=== PATIENT | male | born 1985 | race Caucasian/White ===

== ENCOUNTER 2020-05-23 16:04 | Emergency (ER) | payer MEDICAID ==
[2020-05-23 16:15] VITALS: BP 153/98; PULSE 116
--- NOTE | 2020-05-23 16:42 | CR ---
EXAMINATION: Knee 3V Rt SEX: Male AGE: 34 years CLINICAL HISTORY: 34-year-old male painful right knee (no known trauma but felt a "pop" 13 days ago). Interpretation: 1. Small suprapatellar bursal effusion (suggest possible internal derangement). 2. Subtle reactive sclerosis patellofemoral surface of the patella. 3. Homogeneous normal bone mineral density for age and gender. Symmetric spacing of the knee joint. 4. No sign of pathologic skeletal lesion, right knee fracture, dislocation or radiopaque loose joint body. 5. No foreign bodies.
--- NOTE | 2020-05-23 16:50 | EDM.PDOC ---
Scribed by Ale Juan 05/23/20 [id number] for Marcellus Jones NP ED HPI GENERAL MEDICAL PROBLEM - General Chief Complaint: Lower Extremity Injury/Pain Stated Complaint: RT KNEE PAIN Time Seen by Provider: 05/23/20 16:13 Source of Information: Reports: Patient, RN, RN Notes Reviewed History Limitations: Reports: No Limitations - History of Present Illness INITIAL COMMENTS - FREE TEXT/NARRATIVE: A 34-year-old male who presents to the ER with right knee pain x13 days. Patient reports getting up from a sitting position to try to open the door and he heard a pop. He states he has been hoping it would resolve but the pain has been constant. He has been taking Ibuprofen and drinking to help with pain. No known injury or trauma to the knee. No previous knee injury. Onset: Gradual Duration: Getting Worse Location: Reports: Lower Extremity, Right Quality: Reports: Ache Severity: Mild Improves with: Reports: None Worsens with: Reports: None Associated Symptoms: Reports: No Other Symptoms Right Knee Pain Score (Numeric/FACES): 4 - Related Data Allergies Allergy/AdvReac Type Severity Reaction Status Date / Time No Known Allergies Allergy Verified 05/23/20 16:12 Home Meds: Home Meds Ibuprofen [Advil] 400 mg PO Q4HR PRN 07/26/15 [History] Past Medical History Other Cardiovascular History: no history but BP is elevated at this time. See triage info. Review of Systems - Review of Systems Review Of Systems: Comprehensive ROS is negative, except as noted in HPI. ED EXAM, GENERAL - Physical Exam Exam: See Below Exam Limited By: No Limitations General Appearance: Alert, WD/WN, Mild Distress Respiratory/Chest: No Respiratory Distress, Lungs Clear, Normal Breath Sounds, No Accessory Muscle Use, Chest Non-Tender Cardiovascular: Normal Peripheral Pulses, Regular Rate, Rhythm, No Edema, No Gallop, No JVD, No Murmur, No Rub Extremities: Limited Range of Motion (due to pain), Other (patient could not perform most of the exam due to pain. Right knee extension 4/5. Flexion 2/5. ) Neurological: Alert, Oriented Psychiatric: Anxious Skin Exam: Warm, Intact Course - Vital Signs Last Recorded V/S: Last Vital Signs Temp 97.4 F 05/23/20 16:12 Pulse 116 H 07/16/20 16:12 Resp 16 05/23/20 16:12 BP 153/98 H 05/23/20 16:12 Pulse Ox 98 05/23/20 16:12 - Radiology Interpretation Free Text/Narrative:: X-ray right knee:Negative for fractures. See rad report. - Re-Assessments/Exams Free Text/Narrative Re-Assessment/Exam: Reviewed x-ray findings with patient. Knee immobilizer applied. Encourage ice 20 minutes every hour while awake. Elevate knee when sitting and lying down. Ibuprofen PRN for discomfort. Follow up with PCP. Departure - Departure Time of Disposition: 16:46 Disposition: Home, Self-Care 01 Condition: Good Clinical Impression: Knee pain Qualifiers: Chronicity: acute Laterality: right Qualified Code(s): M25.561 - Pain in right knee Effusion of bursa of knee Qualifiers: Laterality: right Qualified Code(s): M25.461 - Effusion, right knee - Discharge Information *PRESCRIPTION DRUG MONITORING PROGRAM REVIEWED*: Not Applicable *COPY OF PRESCRIPTION DRUG MONITORING REPORT IN PATIENT JAMIN: Not Applicable Instructions: Knee Effusion, Acute Knee Pain, Adult, [id number], How to Use Cold Therapy Forms: ED Department Discharge Additional Instructions: Knee immobilizer applied. Encourage ice 20 minutes every hour while awake. Elevate knee when sitting and lying down. Ibuprofen PRN for discomfort. Follow up with PCP for referral to orthopedics. Sepsis Event Note (ED) - Focused Exam Vital Signs: Vital Signs Temp Pulse Resp BP Pulse Ox 05/23/20 16:12 97.4 F 116 H 16 153/98 H 98 I have read and agree with the documentation that has been completed regarding this visit. By signing this record, I attest that the documentation was completed in my physical presence and is an accurate record of the encounter.
== END 2020-05-23 17:08 | disposition home or self-care (01) ==
LOC: DL.ED 16:04
DX: M25.461 Effusion, right knee (principal); M25.561 Pain in right knee
CPT/HCPCS: 73562-RT; 99283; 99283-25

== ENCOUNTER 2021-06-15 17:39 | Emergency (ER) | payer MEDICAID ==
[2021-06-15 18:15] VITALS: BP 139/90; PULSE 75
[2021-06-15] MEDS ORDERED: Clindamycin HCl 150 MG Cap PO ONE (18:29)
[2021-06-15] MEDS ORDERED: Bacitracin Oint 1 GM U/D Packet TOP ONE (18:29)
--- NOTE | 2021-06-15 18:39 | EDM.PDOC ---
Scribed by Ale Juan 06/15/21 [id number] for Sal Bradley MD ED HPI GENERAL MEDICAL PROBLEM - General Chief Complaint: Lower Extremity Injury/Pain Stated Complaint: RIGHT FOOT BLISTERS HAD FOR 3 WEEKS Time Seen by Provider: 06/15/21 17:57 Source of Information: Reports: Patient, RN, RN Notes Reviewed History Limitations: Reports: No Limitations - History of Present Illness INITIAL COMMENTS - FREE TEXT/NARRATIVE: Patient presents to ED by POV with a history of problems with his feet. He has 2 areas to bilateral heels that he states are healing blisters, present for about 2 weeks. The right medial ankle he states may have been a bug bite that was itchy and then blistered. I then scratched it open. This wound has been present for 4 days and was opened on 06/14/21. Onset: Gradual Duration: Constant Location: Reports: Lower Extremity, Left, Lower Extremity, Right Quality: Reports: Ache Severity: Moderate Improves with: Reports: None Worsens with: Reports: None Associated Symptoms: Reports: No Other Symptoms right foot Pain Score (Numeric/FACES): 3 - Related Data Allergies Allergy/AdvReac Type Severity Reaction Status Date / Time No Known Allergies Allergy Verified 06/15/21 18:15 Home Meds: Home Meds Ibuprofen [Advil] 400 mg PO Q4HR PRN 07/26/15 [History] Past Medical History - Past Health History Medical/Surgical History: Denies Medical/Surgical History Other Cardiovascular History: no history but BP is elevated at this time. See triage info. Review of Systems - Review of Systems Review Of Systems: Comprehensive ROS is negative, except as noted in HPI. ED EXAM, GENERAL - Physical Exam Exam: See Below Exam Limited By: No Limitations General Appearance: Alert, WD/WN, No Apparent Distress Throat/Mouth: Normal Voice, No Airway Compromise Head: Atraumatic, Normocephalic Respiratory/Chest: No Respiratory Distress Cardiovascular: Normal Peripheral Pulses Extremities: No Pedal Edema, Normal Capillary Refill, Other (B/L posterior heel with friction type calluses. Right medial heel 3cm ruptured blister with mild peripheral erythema and small amount of purulent drainage, no abscess.) Neurological: Alert, Oriented, No Motor/Sensory Deficits Psychiatric: Normal Mood Course - Vital Signs Last Recorded V/S: Last Vital Signs Temp 97.8 F 06/15/21 18:09 Pulse 75 06/15/21 18:09 Resp 20 06/15/21 18:09 BP 139/90 06/15/21 18:09 Pulse Ox 100 06/15/21 18:09 - Orders/Labs/Meds Orders: Active Orders 24 hr Category Date Time Status Wound Care [RC] ONETIME Care 06/15/21 18:30 Ordered Meds: Medications Discontinued Medications Generic Name Dose Route Start Last Admin Trade Name Ashely PRN Reason Stop Dose Admin Bacitracin 1 dose 06/15/21 18:29 06/15/21 18:38 Bacitracin Oint 1 Gm U/D Packet TOP 06/15/21 18:30 1 dose ONETIME ONE Administration Clindamycin HCl 300 mg 06/15/21 18:29 06/15/21 18:38 Clindamycin Hcl 150 Mg Cap PO 06/15/21 18:30 300 mg ONETIME ONE Administration Departure - Departure Time of Disposition: 18:35 Disposition: Home, Self-Care 01 Condition: Good Clinical Impression: Infected blister of right foot Qualifiers: Encounter type: initial encounter Qualified Code(s): S90.821A - Blister (nonthermal), right foot, initial encounter - Discharge Information *PRESCRIPTION DRUG MONITORING PROGRAM REVIEWED*: Not Applicable *COPY OF PRESCRIPTION DRUG MONITORING REPORT IN PATIENT JAMIN: Not Applicable Instructions: Cellulitis, Adult, [id number], Blisters, Adult Forms: ED Department Discharge Additional Instructions: Rx: Bactroban (Mupirocin) Ointment 2% Rx: Clindamycin 300mg Wash right foot wound with soap and water and thoroughly blot dry daily. Apply Bactroban ointment, then cover with Allevyn Adhesive bandage or something similar. Follow up in clinic if not improving as expected in 10 to 15 days. Sepsis Event Note (ED) - Focused Exam Vital Signs: Vital Signs Temp Pulse Resp BP Pulse Ox 06/15/21 18:09 97.8 F 75 20 139/90 100 - My Orders Last 24 Hours: My Active Orders 06/15/21 18:30 Wound Care [RC] ONETIME - Assessment/Plan Last 24 Hours: My Active Orders 06/15/21 18:30 Wound Care [RC] ONETIME I have read and agree with the documentation that has been completed regarding this visit. By signing this record, I attest that the documentation was completed in my physical presence and is an accurate record of the encounter.
== END 2021-06-15 18:45 | disposition home or self-care (01) ==
LOC: DL.ED 17:39
DX: S90.821A Blister (nonthermal), right foot, initial encounter (principal); S90.822A Blister (nonthermal), left foot, initial encounter; X58.XXXA Exposure to other specified factors, initial encounter
CPT/HCPCS: 99283; A9270

== ENCOUNTER 2023-04-11 10:26 | Emergency (ER) | payer MEDICAID ==
[2023-04-11] MEDS ORDERED: Take Home: Cyclobenzaprine 10 MG Tab, 4 Tab Pack PO ONE (10:43)
[2023-04-11] MEDS ORDERED: Dexamethasone 6 MG TABLET PO ONE (10:43)
[2023-04-11 10:44] VITALS: BP 184/110; PULSE 100
== END 2023-04-11 11:09 | disposition home or self-care (01) ==
LOC: DL.ED 10:26
DX: M54.16 Radiculopathy, lumbar region (principal)
CPT/HCPCS: 72100; 99283; A9270-GY; J8540

== ENCOUNTER 2025-06-03 17:56 | Emergency (ER) | payer SELFPAY ==
[2025-06-03] MEDS ORDERED: Sodium Chloride 0.9% 10 ML Syringe FLUSH PRN (18:02)
[2025-06-03 18:22] LABS: PLATELET COUNT,PLT 606 10^3/uL (150-450); RED BLOOD CELL COUNT 3.58 10^6/uL (4.6-6.2); WHITE BLOOD CELL COUNT,WBC 24.9 10^3/uL (5.0-10.0)
[2025-06-03] MEDS: Ketorolac 30 MG/ML SDV IVPUSH ONE (18:22)
[2025-06-03] MEDS: Ondansetron 4 MG/2 ML SDV IVPUSH ONE ×2 (18:22→22:57)
[2025-06-03 18:27] LABS: BASOPHILS PERCENT AUTO 0.2 % (0.0-1.0); EOSINOPHILS PERCENT AUTO 0.0 % (1.0-3.0); LYMPHOCYTES PERCENT AUTO 11.5 % (20.5-50.1); MONOCYTES PERCENT AUTO 9.4 % (2-8); NEUTROPHILS PERCENT AUTO 78.9 % (42.2-75.2)
[2025-06-03 18:31] LABS: APPEARANCE,URINE CLEAR (CLEAR); GLUCOSE,URINE NEGATIVE (NEGATIVE); OCCULT BLOOD,URINE TRACE-INTACT (NEGATIVE)
[2025-06-03 18:34] LABS: EPITHELIAL CELLS,URINE OCCASIONAL /HPF (NOT SEEN)
[2025-06-03 18:47] LABS: LACTIC ACID 5.0 mmol/L (0.4-2.0)
[2025-06-03 18:52] LABS: A/G RATIO 0.35; ALANINE AMINOTRANSFERASE,ALT 74.0 U/L (16-63); ASPARTATE AMNIOTRANSFERASE,AST 93.0 U/L (15-37); BILIRUBIN TOTAL 1.0 mg/dL (0.2-1.0); BLOOD UREA NITROGEN,BUN 4.0 mg/dL (7-18); CARBON DIOXIDE,CO2 26.0 mmol/L (21-32); CHLORIDE,CL 100.0 mmol/L (98-107); CREATININE 1.01 mg/dL (0.70-1.30); EST CRCL DRUG DOSING (CG) 86.86 mL/min; ESTIMATED GFR 96.0 mL/min (>=60); GLUCOSE RANDOM 154.0 mg/dL (70-99); POTASSIUM,K 3.9 mmol/L (3.5-5.1); PROTEIN TOTAL,TP 8.1 g/dL (6.4-8.2); SODIUM,NA 140.0 mmol/L (136-145)
[2025-06-03 18:53] LABS: LYMPHOCYTES PERCENT MAN 12 % (20-50); MONOCYTES PERCENT MAN 10 % (2-8); SEG NEUTROPHILS PERCENT MAN 78 % (42-75)
[2025-06-03] MEDS: Iopamidol 755 Mg/ML 100 ML Bottle IVPUSH ONE (19:00)
[2025-06-03] MEDS: Magnesium Sulfate 2 GM/50 mL 2 GM in Premix Bag 1 BAG IV ONE (19:32)
[2025-06-03 20:21] LABS: INR 1.0 (0.9-1.2)
[2025-06-03 23:42] VITALS: PULSE 99
[2025-06-04 00:04] VITALS: BP 127/75
== END 2025-06-03 23:37 ==
LOC: DL.ED 17:56
DX: A41.9 Sepsis, unspecified organism (principal); K76.9 Liver disease, unspecified; Z79.899 Other long term (current) drug therapy
CPT/HCPCS: 36415; 74178; 80053; 81001; 83605; 83690; 83735; 85025; 85610; 86140; 86308; 96365; 96367; 96368; 96375; 96376; 99285; J1885; J2405; J2543; J3373; J3475; J7030; J7040; Q9967; J1171